=== PATIENT | female | born 1985 | race Two or more races ===

== ENCOUNTER 2016-05-02 03:54 | Inpatient (IN) | payer SELFPAY ==
[~2016-05-02] VITALS: Ht 144.8 cm; Wt 64.0 kg
[2016-05-02] MEDS ORDERED: IV RINGERS,LACTATED 1000ML 1,000 ML IV SCH ×2 (04:00→05:25)
[2016-05-02 04:30] LABS: BARBITURATES NEG (NEG); BENZODIAZEPINES NEG (NEG); CANNABINOIDS NEG (NEG); COCAINE NEG (NEG); METHADONE NEG (NEG); OPIATES NEG (NEG); PHENCYCLIDINE NEG (NEG)
[2016-05-02 04:33] LABS: ETHANOL, URINE NEG (NEG)
[2016-05-02 04:34] LABS: BILIRUBIN,URINE NEGATIVE (NEG); GLUCOSE,URINE NEGATIVE (NEG); NITRITE,URINE NEGATIVE (NEG); PROTEIN,URINE NEGATIVE (NEG-TRACE); UROBILINOGEN,URINE 0.2 mg/dL (0.2 mg/dL)
[2016-05-02 04:41] LABS: BACTERIA,URINE FEW /HPF (0-FEW); RBC,URINE OCC /HPF (0-2); SQUAMOUS EPITHELIAL CELL,UR MOD /LPF; WBC,URINE OCC /HPF (0-4)
[2016-05-02] MEDS ORDERED: LIDOCAINE 1% PF 30 ML VIAL. INJ PRN (05:30)
[2016-05-02] MEDS ORDERED: ONDANSETRON PF 4 MG/2 ML VIAL. IV PRN (05:30)
[2016-05-02] MEDS ORDERED: PENICILLIN G K 5,000,000 UNIT in IV NORMAL SALINE 100ML 100 ML IV ONE (05:30)
[2016-05-02] MEDS ORDERED: 0.9 % SODIUM CHLORIDE 10 ML DISP.SYRIN. IV PRN (05:30)
[2016-05-02] MEDS ORDERED: IBUPROFEN 600 MG TABLET. PO PRN (05:30)
[2016-05-02] MEDS ORDERED: BUTORPHANOL 2 MG/ML VIAL. IV PRN (05:30)
[2016-05-02] MEDS ORDERED: TERBUTALINE 1 MG/ML VIAL. SQ PRN (05:30)
[2016-05-02] MEDS ORDERED: OXYTOCIN 30 UNIT/500 ML PREMIX 500 ML IV PRN (05:30)
[2016-05-02] MEDS ORDERED: FENTANYL PF 100 MCG/2 ML VIAL. IV PRN (05:30)
--- NOTE | 2016-05-02 06:19 | RAD ---
Examination: Obstetric ultrasound limited. History: History of unsure dates. COMPARISON None available. Findings : Single living intrauterine identified with heart rate of 130 beats per minute. LMP 07/21/2015. Clinical age 40 weeks and 6 days. Gestational age by ultrasound is 36 weeks and 3 days with estimated delivery 05/27/2016. Estimated weight 2907 +/--430 grams. Cephalic index 84.0. Head circumference to abdominal circumference ratio 1.01. Femur length to biparietal diameter ratio 81.0. Femur length to head circumference 22.0. Femur length to abdominal circumference 22.3. Biparietal diameter 8.85 centimeters corresponding to 35 weeks and 5 days +/-22 days. Head circumference 32.64 centimeters corresponding to 37 weeks and 0 days +/-19 days. Abdominal circumference at 32.17 centimeters corresponding to 36 weeks and 1 day +/-21 days. Femur length 7.17 centimeters corresponding to 36 weeks and 5 days +/-22 days. Amniotic fluid index 7.7. Presentation is vertex. Placenta is anterior. Impression : Single living intrauterine with heart rate of 130 beats per minute. Estimated gestational age by this ultrasound 36 weeks and 3 days with estimated delivery 05/27/2016 by this ultrasound. Other parameters as described above. Electronically signed by: Raman Wilson (May 02, 2016 06:17:06)
[2016-05-02 06:23] VITALS: BP 109/68
[2016-05-02 06:51] LABS: HEMATOCRIT 39.6 % (36.0-47.0); HEMOGLOBIN 12.8 g/dL (12.0-15.5); RED BLOOD COUNT 4.42 x10^6/uL (3.50-5.40); RED CELL DISTRIBUTION WIDTH 14.8 % (11.5-14.5)
[2016-05-02] MEDS ORDERED: OXYTOCIN in NORMAL SALINE PREMIX 30 UNIT/500 ML BAG. IV ONE (07:00)
--- NOTE | 2016-05-02 08:27 | PDOC1 ---
OB - History Hx of Present Care: Good Care Ultrasounds: Normal mid trimester US Obstetrical Complications: None Medical Complications: None Other Concerns: Past Family/Social History * Past Medical, Surgical, Family and Obstetric Histories reviewed from chart. Rubella: Immune RPR/VDRL: Negative GBS Status: Unknown HBsAG: Negative OB - Chief Complaint & HPI Date of Admission: Date of Admission: May 02, 2016 at 03:54 Chief Complaint/History : 3 Para: 2 EGA: 41 Reason for admission: active labor Admission Nurse Assessment Rev: Yes Problems: OB - Admission Exam Physical Exam Vitals: VS - Last 72 Hours, by Label Date Time Temp Pulse Resp B/P Pulse Ox O2 Delivery O2 Flow Rate FiO2 05/02/16 07:28 24 05/02/16 06:23 98.0 67 20 109/68 Room Air 98.0 HEENT: Normal Heart: Regular Rate Lungs: Clear Abdomen: Gravid, Non tender, Soft Extremities: Edema Reflexes: Normal Cervical Dilatation: 8cm Effacement: 100% Station: +1 Membranes: Intact Heart Rate: Normal Accelerations: Accelerations Present Decelerations: No decelerations Contractions on Admission: < 5 Minutes Apart Intensity: Firm Text A: 41 wks IUP x1 and desires Active labor GBS unknown P: Admit for active labor management and Pen VINCENT GOMEZ Jr, MD May 02, 2016 08:27
--- NOTE | 2016-05-02 08:34 | PDOC ---
VAGINAL DELIVERY DATE DATE: 05/02/16 TIME: 08:27 : 3 Para: 3 EGA: 41 VAGINAL DELIVERY: VTX VACCUM ASSISTED: No PLACENTA: Spontaneous 9/9 SEX: Female WEIGHT Weight [2905 gm ] Nuchal Cord: No Amniotic Fluid: Clear PAIN: Natural EPISIOTOMY: No EXTENSION: Yes (2nd degree midline laceration) REPAIRED WITH 2-0 vicryl EBL 300 ml COMPLICATIONS none CONDITION pt. stable Signs of Intrauterine Infectio: None Shoulder Dystocia: No Problems: VINCENT CHANEL Jr, MD May 02, 2016 08:34
[2016-05-02] MEDS ORDERED: PENICILLIN G K 2,500,000 UNIT in IV NORMAL SALINE 50ML 50 ML IV SCH (09:30)
[2016-05-02 12:02] VITALS: BP 112/66
[2016-05-02] MEDS ORDERED: DOCUSATE SODIUM 100 MG CAPSULE. PO PRN (12:30)
[2016-05-02] MEDS ORDERED: HYDROCODONE/APAP 5/325MG TABLET. PO PRN (12:30)
[2016-05-02] MEDS: IBUPROFEN 800 MG TABLET. PO PRN (16:53)
[2016-05-02 17:28] VITALS: BP 120/72
[2016-05-02 21:44] VITALS: BP 102/62
[2016-05-03] MEDS: IBUPROFEN 800 MG TABLET. PO PRN ×3 (01:27→22:52)
[2016-05-03 01:30] VITALS: BP 110/56
[2016-05-03 05:05] VITALS: BP 98/63
[2016-05-03 11:06] VITALS: BP 103/65
--- NOTE | 2016-05-03 13:42 | PDOC ---
OB Progress Note Date of Service 05/03/16 Time of Evaluation 1340 Notes Pt. feeling well. No complaints. Lochia minimal. Pain controlled. Breast feeding without difficulty. Lab Laboratory Tests Test 05/02/16 04:15 05/02/16 05:50 Urine Collection Type Unknown Urine Color Yellow Urine Clarity Clear Urine pH 6.0 Urine Specific [place] <=1.005 Urine Protein Negativemg/dL (NEG-TRACE) Urine Glucose (UA) Negativemg/dL (NEG) Urine Ketones (Stick) Negativemg/dL (NEG) Urine Blood Trace (NEG) Urine Nitrite Negative (NEG) Urine Bilirubin Negative (NEG) Urine Urobilinogen Dipstick 0.2mg/dL (0.2 mg/dL) Urine Leukocyte Esterase Negative (NEG) Urine RBC Occ/HPF (0-2) Urine WBC Occ/HPF (0-4) Urine Squamous Epithelial Cells Mod/LPF Urine Bacteria Few/HPF (0-FEW) Urine Mucus Slight/LPF Urine Opiates Screen Neg (NEG) Urine Methadone Screen Neg (NEG) Urine Barbiturates Neg (NEG) Urine Phencyclidine Screen Neg (NEG) Urine Amphetamine/Methamphetamine Neg (NEG) Urine Benzodiazepines Screen Neg (NEG) Urine Cocaine Screen Neg (NEG) Urine Cannabinoids Screen Neg (NEG) Urine Ethyl Alcohol Neg (NEG) White Blood Count 7.0x10^3/uL (4.0-11.0) Red Blood Count 4.42x10^6/uL (3.50-5.40) Hemoglobin 12.8g/dL (12.0-15.5) Hematocrit 39.6% (36.0-47.0) Mean Corpuscular Volume 90fL (79-100) Mean Corpuscular Hemoglobin 29pg (25-35) Mean Corpuscular Hemoglobin Concent 32g/dL (31-37) Red Cell Distribution Width 14.8% (11.5-14.5) Platelet Count 229x10^3/uL (140-400) RPR Titer Additional Testing Non reactive (Non Reactive) Medications Current Medications Lactated Ringer's (Iv Lactated Ringers) 1,000 ml @ 125 mls/hr Q8H IV Last administered on 05/02/16t 05:58; Start 05/02/16 at 04:00; Stop 05/02/16 at 12:17 ; Status DC Sodium Chloride 3 ml 3 ml QSHIFT PRN IV AFTER MEDS AND BLOOD DRAWS; Start 05/02 at 05:30; Stop 05/02/16 at 12:17; Status DC Lactated Ringer's (Iv Lactated Ringers) 1,000 ml @ 125 mls/hr Q8H IV ; Start at 05:25; Stop 05/02/16 at 12:17; Status DC Butorphanol Tartrate (Stadol) 2 mg PRN Q1HR PRN IV Severe labor pain; Start at 05:30; Stop 05/02/16 at 12:17; Status DC Fentanyl Citrate (Fentanyl 2ml Vial) 100 mcg PRN Q30MIN PRN IV Severe pain Last administered on 05/02/16 07:28; Start 05/02/16 at 05:30; Stop 05/02/16 at 12:17; Status DC Ondansetron HCl (Zofran) 4 mg PRN Q4HRS PRN IV NAUSEA/VOMITING; Start 05/02/16 at 05:30; Stop 05/02/16 at 12:17; Status DC Terbutaline Sulfate (Brethine) 0.25 mg 1X PRN PRN SQ SEE COMMENTS; Start at 05:30; Stop 05/02/16 at 12:17; Status DC Lidocaine HCl 30 ml 30 ml 1X PRN PRN INJ SEE COMMENTS; Start 05/02/16 at 05:30 ; Stop 05/02/16 at 12:17; Status DC Oxytocin/Sodium Chloride (Oxytocin Premix Infusion) 500 ml @ 0 mls/hr CONT PRN PRN IV Post delivery bleeding; Start 05/02/16 at 05:30; Stop 05/02/16 at 12:17; Status DC Ibuprofen 600 mg 600 mg PRN Q6HRS PRN PO PAIN Last administered on 05/02/16 10 :37; Start 05/02/16 at 05:30 Penicillin G Potassium [id number] unit/Sodium Chloride 100 ml @ 100 mls/hr 1X ONCE IV Last administered on 05/02/16 06:34; Start 05/02/16 at 05:30; Stop at 12:17; Status DC Penicillin G Potassium/Sodium Chloride (Pfizerpen/Iv Sodium Chloride 0.9% 50ml) 50 ml @ 100 mls/hr Q4H IV ; Start 05/02/16 at 09:30; Stop 05/02/16 at 12:17; Status DC Oxytocin/Sodium Chloride (Oxytocin Premix Infusion) 30 unit STK-MED ONCE IV ; Start 05/02/16 at 07:00; Stop 05/02/16 at 12:17; Status DC Ibuprofen (Motrin) 800 mg PRN Q8HRS PRN PO MILD PAIN Last administered on 09:27; Start 05/02/16 at 12:30 Docusate Sodium (Colace) 100 mg PRN BID PRN PO CONSTIPATION Last administered on 05/03/16 09:27; Start 05/02/16 at 12:30 Acetaminophen/ Hydrocodone Bitart (Lortab 5/325) 1 tab PRN Q4HRS PRN PO PAIN Last administered on 05/02/16 20:20; Start 05/02/16 at 12:30 Exam Abd; soft, non tender, fundus firm Assessment PPD#1 s/p Plan of Care: Continue current Tx, Mgmt VINCENT CHANEL Jr, MD May 03, 2016 13:42
[2016-05-03 15:15] VITALS: BP 98/55
[2016-05-03 18:30] VITALS: BP 95/60
[2016-05-03 23:05] VITALS: BP 99/64
[2016-05-04 05:00] VITALS: BP 98/60
[2016-05-04] MEDS: IBUPROFEN 800 MG TABLET. PO PRN (08:11)
[2016-05-04 11:23] VITALS: BP 89/53
[2016-05-04 11:45] VITALS: BP 96/66
[2016-05-04 16:30] VITALS: BP 102/62
[2016-05-04 17:23] VITALS: BP 118/64
--- NOTE | 2016-05-04 17:29 | DISCH ---
DISCHARGE INSTRUCTIONS Condition on Discharge Condition on Discharge: Stable Activity After Discharge Activity Instructions for Disc: Activity as tolerated Lifting Instructions after Dis: No heavy lifting Driving Instructions after Dis: Do not drive today Diet after Discharge Diet after Discharge: Regular Follow-Up Follow up with: Dr. Lopez in 2 weeks. VINCENT LOPEZ Jr, MD May 04, 2016 17:29
--- NOTE | 2016-05-04 17:29 | PDOC ---
OB Progress Note Date of Service 05/04/16 Time of Evaluation 1725 Notes Pt. feeling well. No complaints. Medications Current Medications Lactated Ringer's (Iv Lactated Ringers) 1,000 ml @ 125 mls/hr Q8H IV Last administered on 05/02/16 05:58; Start 05/02/16 at 04:00; Stop 05/02/16 at 12:17 ; Status DC Sodium Chloride 3 ml 3 ml QSHIFT PRN IV AFTER MEDS AND BLOOD DRAWS; Start 05/02 at 05:30; Stop 05/02/16 at 12:17; Status DC Lactated Ringer's (Iv Lactated Ringers) 1,000 ml @ 125 mls/hr Q8H IV ; Start at 05:25; Stop 05/02/16 at 12:17; Status DC Butorphanol Tartrate (Stadol) 2 mg PRN Q1HR PRN IV Severe labor pain; Start at 05:30; Stop 05/02/16 at 12:17; Status DC Fentanyl Citrate (Fentanyl 2ml Vial) 100 mcg PRN Q30MIN PRN IV Severe pain Last administered on 05/02/16 07:28; Start 05/02/16 at 05:30; Stop 05/02/16 at 12:17; Status DC Ondansetron HCl (Zofran) 4 mg PRN Q4HRS PRN IV NAUSEA/VOMITING; Start 05/02/16 at 05:30; Stop 05/02/16 at 12:17; Status DC Terbutaline Sulfate (Brethine) 0.25 mg 1X PRN PRN SQ SEE COMMENTS; Start at 05:30; Stop 05/02/16 at 12:17; Status DC Lidocaine HCl 30 ml 30 ml 1X PRN PRN INJ SEE COMMENTS; Start 05/02/16 at 05:30 ; Stop 05/02/16 at 12:17; Status DC Oxytocin/Sodium Chloride (Oxytocin Premix Infusion) 500 ml @ 0 mls/hr CONT PRN PRN IV Post delivery bleeding; Start 05/02/16 at 05:30; Stop 05/02/16 at 12:17; Status DC Ibuprofen 600 mg 600 mg PRN Q6HRS PRN PO PAIN Last administered on 05/02/16 10 :37; Start 05/02/16 at 05:30 Penicillin G Potassium [id number] unit/Sodium Chloride 100 ml @ 100 mls/hr 1X ONCE IV Last administered on 05/02/16 06:34; Start 05/02/16 at 05:30; Stop at 12:17; Status DC Penicillin G Potassium/Sodium Chloride (Pfizerpen/Iv Sodium Chloride 0.9% 50ml) 50 ml @ 100 mls/hr Q4H IV ; Start 05/02/16 at 09:30; Stop 05/02/16 at 12:17; Status DC Oxytocin/Sodium Chloride (Oxytocin Premix Infusion) 30 unit STK-MED ONCE IV ; Start 05/02/16 at 07:00; Stop 05/02/16 at 12:17; Status DC Ibuprofen (Motrin) 800 mg PRN Q8HRS PRN PO MILD PAIN Last administered on 08:11; Start 05/02/16 at 12:30 Docusate Sodium (Colace) 100 mg PRN BID PRN PO CONSTIPATION Last administered on 05/03/16 09:27; Start 05/02/16 at 12:30 Acetaminophen/ Hydrocodone Bitart (Lortab 5/325) 1 tab PRN Q4HRS PRN PO PAIN Last administered on 05/02/16 20:20; Start 05/02/16 at 12:30 Exam Abd: soft, non tender, fundus firm Assessment PPD#2 s/p Plan of Care: See new orders (D/c home.) VINCENT CHANEL Jr, MD May 04, 2016 17:29
[2016-05-04] MEDS ORDERED: IBUP-1060 PO (17:30)
== END 2016-05-04 18:40 | disposition home or self-care (01) | DRG 775 ==
LOC: 3 SO LND 03:54 → OBSVTOIN 03:54 → 3 NORTH 11:54
PROVIDERS: ADMIT Specialist; ATTEND Specialist
PROC: 10E0XZZ Delivery of Products of Conception, External Approach (ICD-10-PCS; principal; 2016-05-02)
PROC: 0KQM0ZZ Repair Perineum Muscle, Open Approach (ICD-10-PCS; 2016-05-02)
DX: O48.0 Post-term pregnancy (principal); O70.1 Second degree perineal laceration during delivery; Z37.0 Single live birth; Z3A.41 41 weeks gestation of pregnancy
CPT/HCPCS: 36415; 76815; 81001; 85027; 86593; 86850; 86900; 86901; 86920; G0378; G0481; J2540; J2590; J3010; J7120

== ENCOUNTER 2016-05-11 19:55 | Emergency (ER) | payer SELFPAY ==
[~2016-05-11] VITALS: Ht 152.4 cm; Wt 55.8 kg
[~2016-05-11 19:55] MED LIST: IBUP-1060 PO
[2016-05-11 20:19] VITALS: BP 140/65
[2016-05-11 21:53] LABS: CALCIUM 8.9 mg/dL (8.5-10.1); CREATININE 0.5 mg/dL (0.6-1.0); GFR 145.9; POTASSIUM 3.5 mmol/L (3.5-5.1)
[2016-05-11 21:59] LABS: ALBUMIN 3.1 g/dL (3.4-5.0); DIRECT BILIRUBIN 0.3 mg/dL (0.0-0.2); TOTAL BILIRUBIN 0.6 mg/dL (0.2-1.0); TOTAL PROTEIN 7.4 g/dL (6.4-8.2)
[2016-05-11] MEDS ORDERED: FAMOTIDINE 20 MG/2 ML VIAL IVP ONE (22:00)
[2016-05-11] MEDS ORDERED: LIDO:MAALOX:DONNATAL 1:1:1 15 ML SINGLE DOSE SWSW ONE (22:00)
--- NOTE | 2016-05-11 23:45 | RAD ---
PROCEDURE Ultrasound of the right upper quadrant abdomen 05/11/2016 HISTORY Epigastric pain for 3 days worse after eating. The patient is 9 days . TECHNIQUE A real-time ultrasound examination of the right upper quadrant of the abdomen was performed. Multiple images were obtained. FINDINGS The gallbladder is well distended. Echogenic gallstones are seen within the dependent portions of the gallbladder. The gallbladder wall thickness is within normal limits. No pericholecystic fluid is seen. The patient is tender with palpation of the ultrasound transducer over the gallbladder (positive sonographic Collins sign). The common bile duct measures 4 millimeters in diameter which is within normal limits. The liver is normal in size and echogenicity. It measures 14.8 centimeters in length. The right kidney and visualized portions of the pancreas are within normal limits. IMPRESSION Cholelithiasis. Positive sonographic Collins's sign. Otherwise negative study. Electronically signed by: Valerio Bell MD (May 11, 2016 23:44:38)
[2016-05-11] MEDS ORDERED: HYDR-2666 PO (23:54)
--- NOTE | 2016-05-11 23:54 | PHYS DOC ---
Past Medical History Past Medical History: No Pertinent History Past Surgical History: Alcohol Use: None Drug Use: None Adult General Chief Complaint Chief Complaint: ABDOMINAL PAIN HPI HPI Patient is a 30 year old female who presents with intermittent epigastric abdominal pain worse in the evenings after meals for the past few days, lasts approx 30 min at a time, crampy. States she is about 1 week and she does not think this is related. She denies lower abdominal pain, f/c, n/v, vaginal bleeding or discharge, dysuria, diarrhea. Review of Systems Review of Systems Constitutional: Denies fever or chills [] Eyes: Denies change in visual acuity, redness, or eye pain [] HENT: Denies nasal congestion or sore throat [] Respiratory: Denies cough or shortness of breath [] Cardiovascular: No additional information not addressed in HPI [] GI: Denies nausea, vomiting, bloody stools or diarrhea [] : Denies dysuria or hematuria [] Musculoskeletal: Denies back pain or joint pain [] Integument: Denies rash or skin lesions [] Neurologic: Denies headache, focal weakness or sensory changes [] Endocrine: Denies polyuria or polydipsia [] Current Medications Current Medications Current Medications Medications (Trade) Dose Ordered Sig/Cole Start Time Stop Time Status Last Admin Dose Admin Famotidine (Pepcid) 20 mg 1X ONCE 05/11/16 22:00 05/11/16 22:01 DC 05/11/16 22:00 20 MG Ketorolac Tromethamine (Toradol) 10 mg 1X ONCE 05/11/16 23:55 05/11/16 23:56 DC 05/11/16 23:55 10 MG Multi-Ingredient Mouthwash/Gargle (Gi Cocktail Single Dose) 15 ml 1X ONCE 05/11/16 22:00 05/11/16 22:01 DC 05/11/16 22:00 15 ML Allergies Allergies Allergies Coded Allergies Type Severity Reaction Last Updated Verified No Known Drug Allergies 05/02/16 No Physical Exam Physical Exam Constitutional: Well developed, well nourished, no acute distress, non-toxic appearance. [] HENT: Normocephalic, atraumatic, bilateral external ears normal, oropharynx moist, nose normal. [] Eyes: PERRLA, EOMI. [] Neck: Normal range of motion, supple. [] Cardiovascular:Heart rate regular rhythm [] Lungs & Thorax: Bilateral breath sounds clear to auscultation [] Abdomen: Bowel sounds normal, soft, mild epigastric tenderness, no RUQ tenderness. [] Skin: Warm, dry, no erythema, no rash. [] Back: No tenderness, no CVA tenderness. [] Extremities: No tenderness, ROM intact, no edema. [] Neurologic: Alert and oriented X 3, normal motor function, normal sensory function, no focal deficits noted. [] Psychologic: Affect normal, judgement normal, mood normal. [] Current Patient Data Vital Signs Vital Signs Date Time Temp Pulse Resp B/P Pulse Ox O2 Delivery O2 Flow Rate FiO2 05/11/16 20:19 98.0 65 18 140/65 99 Room Air 98.0 Lab Values Laboratory Tests Test 05/11/16 20:42 05/11/16 21:40 POC Urine HCG, Qualitative Hcg positive (Negative) Sodium Level 141mmol/L (136-145) Potassium Level 3.5mmol/L (3.5-5.1) Chloride Level 106mmol/L (98-107) Carbon Dioxide Level 27mmol/L (21-32) Anion Gap 8 (6-14) Blood Urea Nitrogen 20mg/dL (7-20) Creatinine 0.5mg/dL (0.6-1.0) L Estimated GFR (Cockcroft-Gault) 145.9 Glucose Level 114mg/dL (70-99) H Calcium Level 8.9mg/dL (8.5-10.1) Total Bilirubin 0.6mg/dL (0.2-1.0) Direct Bilirubin 0.3mg/dL (0.0-0.2) H Aspartate Amino Transferase (AST) 43U/L (15-37) H Alanine Aminotransferase (ALT) 44U/L (14-59) Alkaline Phosphatase 169U/L (46-116) H Total Protein 7.4g/dL (6.4-8.2) Albumin 3.1g/dL (3.4-5.0) L Lipase 199U/L (73-393) Laboratory Tests 05/11/16 21:40 Radiology/Procedures Radiology/Procedures Ultrasound abdomen IMPRESSION Cholelithiasis. Positive sonographic Collins's sign. Otherwise negative study. Electronically signed by: Valerio Bell MD (May 11, 2016 23:44:38) Course & Med Decision Making Course & Med Decision Making Pertinent Labs and Imaging studies reviewed. (See chart for details) Laboratory evaluation is unremarkable, other than remnant positive test. Ultrasound as above. History, exam, imaging concerning for symptomatic cholelithiasis. Discussed symptomatic care and follow-up instructions. Return precautions given. She understands and agrees with plan. Dragon Disclaimer Dragon Disclaimer This electronic medical record was generated, in whole or in part, using a voice recognition dictation system. Departure Departure Impression: Primary Impression: Symptomatic cholelithiasis Disposition: HOME, SELF-CARE Condition: STABLE Referrals: SOCO VALERA MD Patient Instructions: Cholelithiasis, [id number] Additional Instructions: You have gallstones. Avoid fatty foods to keep him from causing abdominal pain. Take Tylenol or ibuprofen as needed for moderate pain. Take hydrocodone as needed for severe pain. Do not drink, drive or operate heavy machinery after taking hydrocodone as it may make you sleepy. Follow-up with general surgery clinic within one week. Please call for appointment. Return for any concerns. Scripts Hydrocodone Bit/Acetaminophen (Hydrocodone-Apap 5-325 )1 Each Tablet1 Tab PO PRN Q6HRS PRN PAIN #10 TAB Prov:Eileen AGUILAR MD 05/11/16 Eileen AGUILAR MD May 11, 2016 23:54
[2016-05-11] MEDS ORDERED: KETOROLAC TROMETHAMINE 30 MG/ML INJ. IV ONE (23:55)
== END 2016-05-12 00:08 | disposition home or self-care (01) ==
LOC: ER 19:55
DX: O90.89 Other complications of the puerperium, not elsewhere classified (principal); K80.20 Calculus of gallbladder without cholecystitis without obstruction
CPT/HCPCS: 36415; 76705; 80048; 80076; 81025; 83690; 96374; 96375; 99285; J1885; S0028

== ENCOUNTER 2016-05-27 20:52 | Emergency (ER) | payer SELFPAY ==
[~2016-05-27] VITALS: Ht 144.8 cm; Wt 55.8 kg
[~2016-05-27 20:52] MED LIST changes: +HYDR-2666 PO
[2016-05-27 20:55] VITALS: BP 106/59
[2016-05-27 21:26] LABS: BILIRUBIN,URINE NEGATIVE (NEG); GLUCOSE,URINE NEGATIVE (NEG); NITRITE,URINE NEGATIVE (NEG); PH,URINE 7.5; PROTEIN,URINE NEGATIVE (NEG-TRACE)
[2016-05-27] MEDS ORDERED: IV NORMAL SALINE 1000ML BAG 1,000 ML IV ONE (21:30)
[2016-05-27 21:33] LABS: BACTERIA,URINE FEW /HPF (0-FEW); SQUAMOUS EPITHELIAL CELL,UR FEW /LPF; WBC,URINE >40 /HPF (0-4)
--- NOTE | 2016-05-27 21:43 | PHYS DOC ---
Past Medical History Past Medical History: No Pertinent History Past Surgical History: Alcohol Use: None Drug Use: None Adult General Chief Complaint Chief Complaint: ABDOMINAL PAIN HPI HPI Patient is a 30 year old female with no significant medical history who presents today with moderate midepigastric abdominal pain with nausea no vomiting that began 2 weeks ago. Patient is also complaining of dysuria. Patient denies any fever. She states she was seen by a provider a while ago and was told she has gallbladder issues. She states she was not able to follow-up because the provided does not speak [place]. Review of Systems Review of Systems Constitutional: Denies fever or chills [] Eyes: Denies change in visual acuity, redness, or eye pain [] HENT: Denies nasal congestion or sore throat [] Respiratory: Denies cough or shortness of breath [] Cardiovascular: No additional information not addressed in HPI [] GI: Abdominal pain : dysuria Musculoskeletal: Denies back pain or joint pain [] Integument: Denies rash or skin lesions [] Neurologic: Denies headache, focal weakness or sensory changes [] Endocrine: Denies polyuria or polydipsia [] Current Medications Current Medications Current Medications Medications (Trade) Dose Ordered Sig/Cole Start Time Stop Time Status Last Admin Dose Admin Ceftriaxone Sodium (Rocephin 1gm Ivpb For Omni) 50 ml @ 100 mls/hr 1X ONCE 05/27/16 22:30 05/27/16 22:59 Famotidine (Pepcid) 20 mg 1X ONCE 05/27/16 21:45 05/27/16 21:46 DC 05/27/16 22:13 20 MG Magnesium Citrate 296 ml 296 ml 1X ONCE 05/27/16 22:30 05/27/16 22:31 DC Morphine Sulfate 5 mg 1X ONCE 05/27/16 21:45 05/27/16 21:46 DC 05/27/16 22:17 5 MG Sodium Chloride (Iv Sodium Chloride 0.9% 1000ml Bag) 1,000 ml @ 1,000 mls/hr 1X ONCE 05/27/16 21:30 05/27/16 22:29 DC 05/27/16 22:12 1,000 MLS/HR Allergies Allergies Allergies Coded Allergies Type Severity Reaction Last Updated Verified No Known Drug Allergies 05/02/16 No Physical Exam Physical Exam Constitutional: Well developed, well nourished, no acute distress, non-toxic appearance. [] HENT: Normocephalic, atraumatic, bilateral external ears normal, oropharynx moist, no oral exudates, nose normal. [] Eyes: PERRLA, EOMI, conjunctiva normal, no discharge. [] Neck: Normal range of motion, no tenderness, supple, no stridor. [] Cardiovascular:Heart rate regular rhythm, no murmur [] Lungs & Thorax: Bilateral breath sounds clear to auscultation [] Abdomen: Bowel sounds normal, soft, mild tenderness to the right upper quadrant with positive Collins sign, no right lower quadrant pain or tenderness, no masses , no pulsatile masses. [] Skin: Warm, dry, no erythema, no rash. [] Back: No tenderness, no CVA tenderness. [] Extremities: No tenderness, no cyanosis, no clubbing, ROM intact, no edema. [] Neurologic: Alert and oriented X 3, normal motor function, normal sensory function, no focal deficits noted. [] Psychologic: Affect normal, judgement normal, mood normal. [] Current Patient Data Vital Signs Vital Signs Date Time Temp Pulse Resp B/P Pulse Ox O2 Delivery O2 Flow Rate FiO2 05/27/16 22:17 22 98 Room Air 05/27/16 20:55 97.7 65 106/59 97.7 Lab Values Laboratory Tests Test 05/27/16 21:10 05/27/16 21:54 Urine Collection Type Unknown Urine Color Yellow Urine Clarity Cloudy Urine pH 7.5 Urine Specific [place] 1.020 Urine Protein Negativemg/dL (NEG-TRACE) Urine Glucose (UA) Negativemg/dL (NEG) Urine Ketones (Stick) Negativemg/dL (NEG) Urine Blood Negative (NEG) Urine Nitrite Negative (NEG) Urine Bilirubin Negative (NEG) Urine Urobilinogen Dipstick 1.0mg/dL (0.2 mg/dL) Urine Leukocyte Esterase Moderate (NEG) Urine RBC 11-20/HPF (0-2) Urine WBC >40/HPF (0-4) Urine Squamous Epithelial Cells Few/LPF Urine Bacteria Few/HPF (0-FEW) White Blood Count 10.4x10^3/uL (4.0-11.0) Red Blood Count 4.68x10^6/uL (3.50-5.40) Hemoglobin 13.7g/dL (12.0-15.5) Hematocrit 40.4% (36.0-47.0) Mean Corpuscular Volume 86fL (79-100) Mean Corpuscular Hemoglobin 29pg (25-35) Mean Corpuscular Hemoglobin Concent 34g/dL (31-37) Red Cell Distribution Width 15.0% (11.5-14.5) H Platelet Count 253x10^3/uL (140-400) Neutrophils (%) (Auto) 77% (31-73) H Lymphocytes (%) (Auto) 16% (24-48) L Monocytes (%) (Auto) 5% (0-9) Eosinophils (%) (Auto) 1% (0-3) Basophils (%) (Auto) 1% (0-3) Neutrophils # (Auto) 8.0x10^3uL (1.8-7.7) H Lymphocytes # (Auto) 1.6x10^3/uL (1.0-4.8) Monocytes # (Auto) 0.6x10^3/uL (0.0-1.1) Eosinophils # (Auto) 0.1x10^3/uL (0.0-0.7) Basophils # (Auto) 0.0x10^3/uL (0.0-0.2) Sodium Level 141mmol/L (136-145) Potassium Level 3.7mmol/L (3.5-5.1) Chloride Level 104mmol/L (98-107) Carbon Dioxide Level 27mmol/L (21-32) Anion Gap 10 (6-14) Blood Urea Nitrogen 19mg/dL (7-20) Creatinine 0.7mg/dL (0.6-1.0) Estimated GFR (Cockcroft-Gault) 98.9 BUN/Creatinine Ratio 27 (6-20) H Glucose Level 116mg/dL (70-99) H Calcium Level 8.4mg/dL (8.5-10.1) L Total Bilirubin 0.3mg/dL (0.2-1.0) Aspartate Amino Transferase (AST) 44U/L (15-37) H Alanine Aminotransferase (ALT) 48U/L (14-59) Alkaline Phosphatase 95U/L (46-116) Total Protein 7.3g/dL (6.4-8.2) Albumin 3.5g/dL (3.4-5.0) Albumin/Globulin Ratio 0.9 (1.0-1.7) L Lipase 259U/L (73-393) Laboratory Tests 05/27/16 21:54 Laboratory Tests 05/27/16 21:54 EKG EKG [] Radiology/Procedures Radiology/Procedures [] Course & Med Decision Making Course & Med Decision Making Pertinent Labs and Imaging studies reviewed. (See chart for details) Patient is in the ED with epigastric pain. She has history of gallbladder disease, she is also complaining of dysuria. Negative urine hCG. Abdominal ultrasound was positive for cholelithiasis, and moderate amount of stool in the colon. Urine positive for UTI. Labs with nothing acute. Patient was given Rocephin in the ED. She was also given mag citrate in the ED. She was discharged with Rocephin and Ultram for pain. I used the translator/interpreter line to speak to patient. I recommended she gets a friend or family member who speaks [place] to schedule her for an appointment to follow-up with the general surgeon. There was a family member/friend in the ED with her. She stated she will help patient scheduled an appointment with a general surgeon and take patient for follow up. Dragon Disclaimer Dragon Disclaimer This electronic medical record was generated, in whole or in part, using a voice recognition dictation system. Departure Departure Impression: Primary Impression: Urinary tract infection Additional Impressions: Constipation Cholelithiases Disposition: HOME, SELF-CARE Condition: STABLE Referrals: NO PCP (PCP) FITZ CAO MD Follow up with the provided general surgeon by calling the office on Sunday for an appointment Patient Instructions: Cholelithiasis, Constipation, Adult, Urinary Tract Infection Additional Instructions: Your ultrasound was positive for cholelithiasis which is gallbladder disease. Please contact the provided general surgeon and follow-up as soon as possible. You also tested positive for urinary tract infection and we'll put on antibiotics. Take the prescribed antibiotics for 7 days. You have moderate amount of stool in your colon meaning you are constipated. Take magnesium citrate daily until you have a bowel movement and consider taking MiraLAX on daily basis to prevent constipation. Come back to the ED at any point symptoms worsen. Scripts Tramadol Hcl (Ultram)50 Mg Tablet1 Tab PO Q6HRS #30 TAB Prov:MUTUNGA,DIMPLE NUTRITION TEACHER 05/27/16 Cephalexin (Keflex)500 Mg Capsule1 Cap PO BID #14 CAP Prov:DIMPLE PALACIO APRN 05/27/16 Problem Qualifiers Primary Impression: Urinary tract infection Urinary tract infection type: site unspecified Hematuria presence: without hematuria Qualified Code: N39.0 - Urinary tract infection, site not specified Additional Impressions: Constipation Constipation type: unspecified constipation type Qualified Code: K59.00 - Constipation, unspecified Cholelithiases Cholelithiasis location: gallbladder Cholecystitis presence: without cholecystitis Biliary obstruction: without biliary obstruction Qualified Code : K80.20 - Calculus of gallbladder without cholecystitis without obstruction DIMPLE PALACIO APRN May 27, 2016 21:43
[2016-05-27] MEDS ORDERED: MORPHINE SULFATE 10 MG/ML VIAL. IV ONE (21:45)
[2016-05-27] MEDS ORDERED: FAMOTIDINE 20 MG/2 ML VIAL IVP ONE (21:45)
[2016-05-27 22:01] LABS: BASO % 1 % (0-3); EOS % 1 % (0-3); HEMATOCRIT 40.4 % (36.0-47.0); HEMOGLOBIN 13.7 g/dL (12.0-15.5); LYMPH # 1.6 x10^3/uL (1.0-4.8); LYMPH % 16 % (24-48); MEAN CORPUSCULAR HEMOGLOBIN 29 pg (25-35); MEAN CORPUSCULAR HGB CONC 34 g/dL (31-37); MEAN CORPUSCULAR VOLUME 86 fL (79-100); MONO % 5 % (0-9); NEUT % 77 % (31-73); PLATELET COUNT 253 x10^3/uL (140-400); RED BLOOD COUNT 4.68 x10^6/uL (3.50-5.40); WHITE BLOOD COUNT 10.4 x10^3/uL (4.0-11.0)
--- NOTE | 2016-05-27 22:02 | RAD ---
PROCEDURE CT scan of the abdomen and pelvis without contrast 05/27/2016 HISTORY Abdominal pain. TECHNIQUE Unenhanced contiguous, 5 millimeter axial sections were obtained through the abdomen and pelvis. One or more of the following individualized dose reduction techniques were utilized for this study: 1. Automated exposure control. 2. Adjustment of the mA and/or kV according to patient size. 3. Use of iterative reconstruction technique. FINDINGS Comparison is made the patient's ultrasound of right upper quadrant of the abdomen dated 05/11/2016. Images through the lung bases demonstrate minimal dependent subsegmental atelectasis bilaterally. The liver, spleen, pancreas, adrenal glands and kidneys are within normal limits. The abdominal aorta tapers normally. Partially calcified gallstones are seen within the gallbladder. No free fluid or free air is within the abdomen. There is no evidence of bowel obstruction. Moderate to large amount of stool is seen throughout the colon. The appendix is well visualized and is within normal limits. Images through the pelvis demonstrate the urinary bladder distended with urine. No adnexal mass is seen. No free fluid is noted. Very mild S-shaped curvature of the thoracolumbar spine is seen. IMPRESSION 1. Cholelithiasis. 2. Moderate to large amount of stool is seen throughout the colon. 3. No acute abnormality is seen. Electronically signed by: Valerio Bell MD (May 27, 2016 22:01:06)
[2016-05-27 22:23] LABS: CALCIUM 8.4 mg/dL (8.5-10.1); CREATININE 0.7 mg/dL (0.6-1.0); GFR 98.9; POTASSIUM 3.7 mmol/L (3.5-5.1)
[2016-05-27 22:29] LABS: ALBUMIN 3.5 g/dL (3.4-5.0); ALBUMIN/GLOBULIN RATIO 0.9 (1.0-1.7); TOTAL BILIRUBIN 0.3 mg/dL (0.2-1.0); TOTAL PROTEIN 7.3 g/dL (6.4-8.2)
[2016-05-27] MEDS ORDERED: CEFTRIAXONE 1GM IVPB FOR OMNI 50 ML IV ONE (22:30)
[2016-05-27] MEDS ORDERED: MAGNESIUM CITRATE 296 ML SOLUTION. PO ONE (22:30)
[2016-05-27] MEDS ORDERED: TRAM-29 PO (23:02)
[2016-05-27] MEDS ORDERED: CEPH-264 PO (23:02)
== END 2016-05-27 23:49 | disposition home or self-care (01) ==
LOC: ER 20:52
DX: K80.20 Calculus of gallbladder without cholecystitis without obstruction (principal); N39.0 Urinary tract infection, site not specified; K59.00 Constipation, unspecified
CPT/HCPCS: 36415; 74176; 80053; 81001; 81025; 83690; 85027; 87086; 96361; 96365; 96375; 99285; J0690; J2270; J7030; S0028